=== PATIENT | male | born 1965 | race Caucasian/White ===

== ENCOUNTER 2021-03-04 10:02 | Emergency (ER) | payer MEDICAID, OTHER, SELFPAY ==
[2021-03-04 10:03] VITALS: BP 133/90; PULSE 81; RESP 18; TEMP 36.8; O2SAT 99; BMI 24.7
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
[2021-03-04] MEDS: Acetaminophen 500 MG Tablet 1000 MG PO (10:18)
--- NOTE | 2021-03-04 10:57 | ED.RN ---
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 HE REPORTS THAT PATIENT DOES NOT REQUIRE ANY ADDITIONAL TESTING. THAT THE PT ONLY NEEDS TO COMPLETED TESTING FOR DEPT OF TRANSPORTATION. MIL [employer] PHONE NUMBER [phone].
[2021-03-04 12:15] VITALS: BP 121/75; PULSE 85; RESP 16; O2SAT 99
== END 2021-03-04 12:17 | disposition home or self-care (01) ==
LOC: ED 11:32
PROVIDERS: Emergency Provider Emergency Medicine; Visit Provider Emergency Medicine
DX: S09.90XA Unspecified injury of head, initial encounter (principal); S20.219A Contusion of unspecified front wall of thorax, initial encounter; V68.5XXA Driver of heavy transport vehicle injured in noncollision transport accident in traffic accident, initial encounter; Y92.410 Unspecified street and highway as the place of occurrence of the external cause; Y93.89 Activity, other specified; Y99.0 Civilian activity done for income or pay; F17.210 Nicotine dependence, cigarettes, uncomplicated; Z95.4 Presence of other heart-valve replacement; Z79.82 Long term (current) use of aspirin; Z86.73 Personal history of transient ischemic attack (TIA), and cerebral infarction without residual deficits
CPT/HCPCS: 70450; 71101; 72125; 99284